=== PATIENT | female | born 1965 | race Caucasian/White ===

== ENCOUNTER 2019-03-02 19:38 | Emergency (ER) | payer MEDICAID, OTHER ==
[~2019-03-02] VITALS: Ht 165.1 cm; Wt 73.0 kg
[~2019-03-02 19:38] MED LIST: ATOR20TA PO; DOCU-138 PO; INSLIS SQ; LISI-604 PO; METF-414 PO; OMEPRAZOLE PO; SULF5DRO RIGHTEYE
[2019-03-02] MEDS ORDERED: MORPHINE SULFATE 4 MG/ML CPJ (NOT FOR IM USE) IV STA (20:36)
[2019-03-02] MEDS ORDERED: ONDANSETRON HCL 4MG/2ML INJ IV STA (20:36)
[2019-03-02] MEDS ORDERED: SODIUM CHLORIDE 0.9% 1,000 ML IV ONE (20:36)
[2019-03-02 20:55] LABS: CLARITY URINE CLOUDY (CLEAR); COLOR URINE YELLOW (YELLOW); KETONES URINE NEGATIVE (NEGATIVE); LEUKOCYTE ESTERASE URINE 1+ (NEGATIVE); NITRITE URINE NEGATIVE (NEGATIVE); OCCULT BLOOD URINE NEGATIVE (NEGATIVE); PH URINE 6.5 (4.5-8.0); PROTEIN URINE NEGATIVE (NEGATIVE); SPECIFIC GRAVITY URINE 1.039 (1.005-1.030)
[2019-03-02 21:00] LABS: BASOPHILS % 0.6 % (0.0-2.0); EOSINOPHILS % 2.6 % (0.0-5.0); HEMATOCRIT. 40.6 % (36.0-48.0); HEMOGLOBIN. 14.1 g/dL (12.0-16.0); LYMPHOCYTES % 31.9 % (20.0-50.0); MEAN CORPUSCULAR HEMOGLOBIN 30.4 pg (28.0-32.0); MEAN CORPUSCULAR VOLUME 87.2 fL (81.0-99.0); MEAN PLATELET VOLUME 8.2 fl (7.4-10.4); MONOCYTES % 10.2 % (2.0-8.0); NEUTROPHILS % 54.7 % (40.0-76.0); PLATELET 224 x1000/uL (130-400); RED BLOOD CELL COUNT 4.65 mill/uL (4.2-5.4); RED CELL DISTRIBUTION WIDTH 13.7 % (11.6-14.6)
[2019-03-02 21:06] LABS: CHLORIDE 99 mEq/L (98-107)
[2019-03-02 21:09] LABS: PROTHROMBIN TIME 9.8 sec (9.6-11.0)
[2019-03-02] MEDS ORDERED: CEFTRIAXONE 1 G PREMIX 50 ML IV SCH (21:30)
[2019-03-02] MEDS ORDERED: IOHEXOL-300 100 ML BOTTLE ONE (22:50)
[2019-03-02] MEDS ORDERED: MORPHINE SULFATE 4 MG/ML CPJ (NOT FOR IM USE) IV ONE (23:15)
[2019-03-03] MEDS ORDERED: HYDROCODONE/ACETAMINOPHEN 5/325MG TABLET PO ONE (00:45)
[2019-03-03 01:10] VITALS: BP 110/60
== END 2019-03-03 01:14 | disposition home or self-care (01) ==
LOC: ER 19:59 → CANBEDREQ 03-03 02:04
DX: N89.8 Other specified noninflammatory disorders of vagina (principal); N20.0 Calculus of kidney; N81.4 Uterovaginal prolapse, unspecified; I10 Essential (primary) hypertension; E11.9 Type 2 diabetes mellitus without complications
CPT/HCPCS: 36415; 74177; 76830; 76856; 80053; 81003; 81025; 82962; 83690; 85025; 85610; 96365; 96375; 96376; 99284; J0696; J2270; J2405; J7030; Q9967; Z7610

== ENCOUNTER 2019-05-23 17:27 | Emergency (ER) | payer MEDICAID ==
[~2019-05-23] VITALS: Ht 152.4 cm; Wt 70.0 kg
[2019-05-23] MEDS ORDERED: IBUPROFEN 600MG TABLET PO ONE (21:00)
[2019-05-23 21:45] LABS: CLARITY URINE CLEAR (CLEAR); COLOR URINE YELLOW (YELLOW); KETONES URINE TRACE (NEGATIVE); LEUKOCYTE ESTERASE URINE TRACE (NEGATIVE); NITRITE URINE NEGATIVE (NEGATIVE); OCCULT BLOOD URINE NEGATIVE (NEGATIVE); PROTEIN URINE 1+ (NEGATIVE); SPECIFIC GRAVITY URINE 1.043 (1.005-1.030); UROBILINOGEN URINE 0.2 E.U./dL (0.2-1.0)
[2019-05-23 22:10] VITALS: BP 141/84
== END 2019-05-23 22:10 | disposition home or self-care (01) ==
LOC: ER 17:27
DX: N30.00 Acute cystitis without hematuria (principal)
CPT/HCPCS: 81003; 99283

== ENCOUNTER 2019-09-01 11:40 | Emergency (ER) | payer MEDICAID ==
[~2019-09-01] VITALS: Ht 152.4 cm; Wt 77.5 kg
[2019-09-01 11:42] VITALS: BP 177/90
[2019-09-01] MEDS ORDERED: glipizide (11:42)
== END 2019-09-01 12:38 | disposition home or self-care (01) ==
LOC: ER 11:40
DX: H10.13 Acute atopic conjunctivitis, bilateral (principal); I10 Essential (primary) hypertension; E11.9 Type 2 diabetes mellitus without complications
CPT/HCPCS: 99283

== ENCOUNTER 2022-10-12 17:20 | Emergency (ER) | payer MEDICAID ==
[~2022-10-12] VITALS: Ht 152.4 cm; Wt 65.0 kg
[~2022-10-12 17:20] MED LIST changes: -LISI-604 PO; +LISI20TA31 PO; +glipizide
[2022-10-12 17:28] VITALS: BP 183/84; PULSE 92; RESP 22; TEMP 98
[2022-10-12 18:03] LABS: CHLORIDE 105 mEq/L (98-107)
[2022-10-12 18:12] LABS: HEMATOCRIT. 34.4 % (36.0-48.0); HEMOGLOBIN. 11.9 g/dL (12.0-16.0); MEAN CORPUSCULAR HEMOGLOBIN 30.2 pg (28.0-32.0); MEAN CORPUSCULAR VOLUME 87.3 fL (81.0-99.0); MEAN PLATELET VOLUME 7.9 fl (7.4-10.4); PLATELET 232 x1000/uL (130-400); RED BLOOD CELL COUNT 3.94 mill/uL (4.2-5.4); RED CELL DISTRIBUTION WIDTH 13.6 % (11.6-14.6)
[2022-10-12 21:18] LABS: PLATELET ESTIMATE NORMAL
== END 2022-10-13 01:00 | disposition left against medical advice (07) ==
LOC: ER 17:20
DX: Z53.21 Procedure and treatment not carried out due to patient leaving prior to being seen by health care provider (principal); I49.9 Cardiac arrhythmia, unspecified
CPT/HCPCS: 36415; 80053; 85025; 93005; 99281

== ENCOUNTER 2024-05-22 14:27 | Emergency (ER) | payer MEDICAID ==
[~2024-05-22] VITALS: Ht 160 cm; Wt 70.0 kg
[2024-05-22 14:29] VITALS: BP 183/89; PULSE 84; RESP 18; TEMP 36.9; O2SAT 99
[2024-05-22] MEDS ORDERED: METH-653 MT (16:25)
[2024-05-22] MEDS ORDERED: IBUP-2029 MT (16:25)
== END 2024-05-22 17:01 | disposition home or self-care (01) ==
LOC: ER 14:27
DX: S13.4XXA Sprain of ligaments of cervical spine, initial encounter (principal); S43.402A Unspecified sprain of left shoulder joint, initial encounter; E11.9 Type 2 diabetes mellitus without complications; I10 Essential (primary) hypertension; M19.90 Unspecified osteoarthritis, unspecified site; Z79.899 Other long term (current) drug therapy; Z98.890 Other specified postprocedural states; V89.2XXA Person injured in unspecified motor-vehicle accident, traffic, initial encounter; Y93.89 Activity, other specified; Y92.89 Other specified places as the place of occurrence of the external cause; Y99.8 Other external cause status
CPT/HCPCS: 73030; 99283